=== PATIENT | female | born 1965 | race Caucasian/White ===

== ENCOUNTER 2021-12-24 13:33 | Emergency (ER) | payer OTHER, MEDICAID | END 2021-12-24 15:30 | disposition home or self-care (01) | LOC: VM.ED 13:33 | DX: S82.61XA Displaced fracture of lateral malleolus of right fibula, initial encounter for closed fracture (principal); S93.401A Sprain of unspecified ligament of right ankle, initial encounter; X50.1XXA Overexertion from prolonged static or awkward postures, initial encounter; Y92.828 Other wilderness area as the place of occurrence of the external cause | CPT/HCPCS: 73610-RT; 99283 ==